=== PATIENT | male | born 1970 | race Hispanic/Latino ===

== ENCOUNTER 2018-06-07 18:08 | Emergency (ER) | payer SELFPAY ==
[~2018-06-07] VITALS: Ht 170.2 cm; Wt 84.8 kg
--- OUTSIDE RECORDS SUMMARY | 2018-06-07 18:11 | XMS REPORT ---
[facility] Address Unknown Phone Unavailable Care Team Providers Care Pmo Project Manager Name Role Phone Unavailable Unavailable Problems This patient has no known problems. Allergies, Adverse Reactions, Alerts This patient has no known allergies or adverse reactions. Medications This patient has no known medications. Encounters Start Date/Time End Date/Time Encounter Type Admission Type Attending [facility] Care Department Encounter ID 2018-05-03 00:00:00 2018-05-03 00:00:00 Outpatient [facility] [id number] 2018-03-31 00:00:00 2018-03-31 00:00:00 Outpatient [facility] [id number] 2018-03-15 16:03:48 2018-03-15 16:03:48 Outpatient [facility] [id number] 2018-03-15 16:00:45 2018-03-15 16:00:45 Outpatient [facility] [id number] 2018-03-15 14:19:31 2018-03-15 14:19:31 Outpatient [facility] [id number] 2018-02-16 00:00:00 2018-02-16 00:00:00 Outpatient [facility] [id number] 2018-01-29 00:00:00 2018-01-29 00:00:00 Outpatient [facility] [id number] 2018-01-08 11:17:49 2018-01-08 11:17:49 Outpatient [facility] [id number] 2017-12-30 15:51:38 2017-12-30 15:51:38 Outpatient [facility] [id number] 2017-12-30 15:49:24 2017-12-30 15:49:24 Outpatient [facility] [id number] 2017-12-30 14:51:10 2017-12-30 14:51:10 Outpatient [facility] [id number] 2017-12-11 00:00:00 2017-12-11 00:00:00 Outpatient [facility] [id number] 2017-12-03 00:00:00 2017-12-03 00:00:00 Outpatient [facility] [id number] 2017-11-25 15:10:37 2017-11-25 15:10:37 Outpatient [facility] [id number] 2017-11-23 00:00:00 2017-11-23 00:00:00 Outpatient [facility] [id number] 2017-11-06 14:20:34 2017-11-06 14:20:34 Outpatient [facility] [id number] 2017-11-06 13:36:15 2017-11-06 13:36:15 Outpatient [facility] [id number] 2017-11-06 12:42:37 2017-11-06 12:42:37 Outpatient [facility] [id number] 2017-11-04 00:00:00 2017-11-04 00:00:00 Outpatient [facility] [id number] 2017-10-13 10:28:45 2017-10-13 10:28:45 Outpatient [facility] [id number] 2017-10-13 09:27:49 2017-10-13 09:27:49 Outpatient [facility] [id number] 2017-10-13 09:21:20 2017-10-13 09:21:20 Outpatient [facility] [id number] 2017-10-13 09:12:40 2017-10-13 09:12:40 Outpatient [facility] [id number] 2017-02-03 14:22:32 2017-02-03 14:22:32 Outpatient [facility] [id number] 2017-02-03 08:44:59 2017-02-03 08:44:59 Outpatient [facility] [id number] 2017-01-15 08:20:57 2017-01-15 08:20:57 Outpatient [facility] [id number] 2017-01-15 07:44:59 2017-01-15 07:44:59 Outpatient [facility] [id number] 2017-01-13 07:53:59 2017-01-13 07:53:59 Outpatient [facility] [id number] 2017-01-13 07:48:15 2017-01-13 07:48:15 Outpatient [facility] [id number] 2017-01-06 12:28:27 2017-01-06 12:28:27 Outpatient [facility] [id number] 2017-01-06 10:26:51 2017-01-06 10:26:51 Outpatient [facility] [id number] 2016-10-22 14:23:30 2016-10-22 14:23:30 Outpatient [facility] [id number] 2016-10-15 13:45:17 2016-10-15 13:45:17 Outpatient [facility] [id number] 2016-10-15 00:00:00 2016-10-15 00:00:00 Outpatient [facility] [id number] 2016-10-13 00:00:00 2016-10-13 00:00:00 Outpatient [facility] [id number] 2016-10-07 00:00:00 2016-10-07 00:00:00 Outpatient [facility] [id number] 2016-09-29 09:54:35 2016-09-29 09:54:35 Outpatient [facility] [id number] 2016-09-29 09:02:49 2016-09-29 09:02:49 Outpatient [facility] [id number] 2016-09-18 00:00:00 2016-09-18 00:00:00 Outpatient [facility] [id number]
[2018-06-07 19:03] LABS: BASOPHILS % 0.4 % (0.0-1.0); EOSINOPHILS # (AUTO) 0.1 (0.0-0.4); EOSINOPHILS % 0.6 % (0.0-6.0); HEMOGLOBIN 13.5 g/dL (14.0-18.0); LYMPHOCYTES # (AUTO) 1.6 (1.0-3.2); LYMPHOCYTES % 20.9 % (18.0-39.1); MEAN CORPUSCULAR HEMOGLOBIN 30.5 pg (28-32); MEAN CORPUSCULAR HGB CONC 34.6 g/dL (31-35); MEAN CORPUSCULAR VOLUME 88.2 fL (81-99); MONOCYTES # (AUTO) 0.5 (0.2-0.8); MONOCYTES % 6.8 % (4.4-11.3); NEUTROPHILS # (AUTO) 5.5 (2.1-6.9); NEUTROPHILS % 70.9 % (38.7-80.0); PLATELET COUNT 196 x10e3/uL (140-360); RED BLOOD COUNT 4.42 x10e6/uL (4.3-5.7); RED CELL DISTRIBUTION WIDTH 12.7 % (11.7-14.4)
[2018-06-07 19:13] LABS: INR 0.9
[2018-06-07 19:23] LABS: ALANINE AMINOTRANSFERASE 45 IU/L (0-55); ALBUMIN 4.1 g/dL (3.5-5.0); ALKALINE PHOSPHATASE 40 IU/L (40-150); ANION GAP 16.4 mmol/L (8-16); BLOOD UREA NITROGEN 15 mg/dL (7-26); BUN/CREATININE RATIO 14 (6-25); CALCIUM 9.6 mg/dL (8.4-10.2); CARBON DIOXIDE 24 mmol/L (22-29); CHLORIDE 95 mmol/L (98-107); CREATININE, SERUM 1.06 mg/dL (0.72-1.25); EST GLOMERULAR FILTRATION RATE > 60 ML/MIN (60-); GLUCOSE 302 mg/dL (74-118); POTASSIUM 4.4 mmol/L (3.5-5.1); SODIUM 131 mmol/L (136-145)
[2018-06-07] MEDS ORDERED: HEPARIN 25,000 UNIT/D5W 250ML 250 ML IV SCH (21:45)
--- NOTE | 2018-06-07 22:48 | Diagnostic Imaging Report ---
EXAM: CTA Pelvis and Lower Extremity, WITH Contrast. INDICATION: LOSS OF BLOOD FLOW TO RIGHT LOWER LEG COMPARISON: None. TECHNIQUE: Multidetector [address] scanning with 3.75 mm cuts of the pelvis and right lower extremity after administration of 100 cc IV of Isovue-370. Coronal and sagittal multiplanar and 3-D volume-rendering reformations were obtained. IV CONTRAST: 100 mL of Isovue-370 ORAL CONTRAST: None COMPLICATIONS: None RADIATION DOSE: Total DLP: 524.8 mGy*cm Estimated effective dose: (DLP x 0.015 x size factor) mSv Dose modulation, iterative reconstruction, and/or weight based adjustment of the mA/kV was utilized to reduce the radiation dose to as low as reasonably achievable. FINDINGS: Potential study limitations: Poor arterial contrast opacification in the distal thigh and below. VASCULAR WITH ADVANCED 3-D OFF-LINE POSTPROCESSING: PELVIS VESSELS: Bilateral external, and internal iliac arteries are patent with associated no significant atherosclerotic calcifications or significant stenosis. RIGHT LOWER EXTREMITY: Right common femoral, profundus femoral, proximal and mid superficial femoral . The arteries beginning at the level of the distal superficial femoral artery are not well opacified secondary to contrast timing. Limited evaluation of the arterial system at and below this segment. Suggestion of fusiform dilatation of the popliteal artery measuring up to 1.9 cm (series 3 image 134), however, evaluation is limited. NON-VASCULAR FINDINGS: PELVIS: There is no significant retroperitoneal adenopathy. No free fluid or free air within the abdomen or pelvis. The bowel appears unremarkable. The urinary bladder appears normal. BONES: No acute osseous abnormalities. IMPRESSION: 1. Contrast timing limits evaluation of the arterial system at and below the level of the distal superficial femoral artery. Proximally, no evidence of significant stenosis. 2. 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 Consider repeat CTA when clinically feasible. Signed by: DR. Julius Lopez MD on 06/07/2018 10:44 PM
--- NOTE | 2018-06-07 23:05 | NUR ---
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, TRANSFER INITIATED AT THIS TIME.
[2018-06-08 00:03] VITALS: BP 112/75
[2018-06-08] MEDS ORDERED: IOPAMIDOL 370 MG/ML 200 ML INFUS..BTL INJ ONE (02:19)
[2018-06-08] MEDS ORDERED: SODIUM CHLORIDE 0.9% 100 ML 100 ML ONE (02:19)
[2018-06-08] MEDS ORDERED: HYDROMORPHONE 2MG/ML 2 MG/ML ML IV ONE (08:30)
== END 2018-06-08 00:15 | disposition short-term general hospital (02) ==
LOC: ER 18:08
DX: I74.3 Embolism and thrombosis of arteries of the lower extremities (principal)
CPT/HCPCS: 36415; 73706; 80053; 85025; 85610; 85730; 93926; 93971; 99284; J1170; Q9967